=== PATIENT | female | born 1960 | race Caucasian/White ===

== ENCOUNTER 2017-12-30 17:46 | Emergency (ER) | payer OTHER ==
[~2017-12-30] VITALS: Ht 162.6 cm; Wt 80.0 kg
[~2017-12-30 17:46] MED LIST: LORTA5 PO; METH750T2 PO; MOBI15TA PO
[2017-12-30 17:53] VITALS: BP 109/56; PULSE 84; RESP 12; TEMP 97.7; O2SAT 95
[2017-12-30] MEDS ORDERED: KETOROLAC TROMETHAMINE 60 MG/2 ML (IM) VIAL IM ONE (18:45)
[2017-12-30] MEDS ORDERED: ORPHENADRINE INJ 60 MG/2 ML AMP IM ONE (18:45)
[2017-12-30] MEDS ORDERED: ROBA500T PO (19:36)
[2017-12-30] MEDS ORDERED: IBUP1TAB7 PO (19:36)
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
== END 2017-12-30 19:52 | disposition home or self-care (01) ==
LOC: NEPK 17:46
DX: S16.1XXA Strain of muscle, fascia and tendon at neck level, initial encounter (principal); G44.319 Acute post-traumatic headache, not intractable; V89.2XXA Person injured in unspecified motor-vehicle accident, traffic, initial encounter
CPT/HCPCS: 72050; 96372; 99283; J1885; J2360

== ENCOUNTER 2018-01-05 23:55 | Emergency (ER) | payer OTHER ==
[~2018-01-05 23:55] MED LIST changes: +IBUP1TAB7 PO; +ROBA500T PO
[2018-01-05 23:59] VITALS: BP 137/70; PULSE 69; RESP 16; TEMP 97.8; O2SAT 97
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
[2018-01-06] MEDS ORDERED: DEXAMETHASONE SOD PHOS 4 MG/ML VIAL IV PUSH ONE (01:15)
[2018-01-06] MEDS ORDERED: MORPHINE SULFATE 4 MG/ML INJ IV PUSH ONE (01:15)
[2018-01-06] MEDS ORDERED: KETOROLAC TROMETHAMINE 30 MG/ML (IVP) VIAL IV PUSH ONE (01:15)
[2018-01-06] MEDS ORDERED: ONDANSETRON ODT 4 MG TAB PO ONE (01:15)
--- NOTE | 2018-01-06 01:31 | RADRPT ---
EXAM DATE: 01/06/2018 1:24 AM EDT AGE/SEX: 57 years / Female INDICATIONS: Back pain. CLINICAL DATA: This is the patient's initial encounter. Patient reports that signs and symptoms have been present for 1 day and indicates a pain score of 8/10. MEDICAL/SURGICAL HISTORY: None. None. RADIATION DOSE: 35.25 CTDI (mGy) COMPARISON: No prior exams available for comparison. TECHNIQUE: Contiguous axial images were acquired with a multirow detector CT scanner without contras t. Multiplanar reconstructions in the sagittal and coronal plane were also performed. Using automate d exposure control and adjustment of the mA and/or kV according to patient size, radiation dose was k ept as low as reasonably achievable to obtain optimal diagnostic quality images. DICOM format image data is available electronically for review and comparison. FINDINGS: Vertebrae: Normal vertebral body height. Alignment: Normal. No subluxation. Metallic densities are seen adjacent to the uterus likely related to fallopian tube closure devices. T12-L1: The thecal sac has a normal diameter. No evidence of disc bulge or protrusion. The neural foramina are patent bilaterally. L1-L2: The thecal sac has a normal diameter. No evidence of disc bulge or protrusion. The neural f oramina are patent bilaterally. L2-L3: The thecal sac has a normal diameter. No evidence of disc bulge or protrusion. The neural f oramina are patent bilaterally. L3-L4: There is mild diffuse disc bulge causing a mild impression on the thecal sac. The neural fora shea are patent bilaterally. L4-L5: There is mild diffuse disc bulge causing a mild impression on the thecal sac. The neural fora shea are patent bilaterally. L5-S1: There is a mild right paracentral to lateral recess disc protrusion. This abuts the right S1 root at the lateral recess level. The thecal sac is otherwise normal. The neural foramina are patent bilaterally. CONCLUSION: 1. Mild right-sided disc protrusion at the L5-S1 level. 2. Mild disc bulges at the L3-L4 and L4-L5 levels. Electronically signed by: Johan Maya MD 01/06/2018 1:30 AM EDT
[2018-01-06] MEDS ORDERED: TYLETAB34 PO (02:30)
[2018-01-06 02:55] VITALS: BP 132/74
== END 2018-01-06 03:00 | disposition home or self-care (01) ==
LOC: NEPD 23:55
DX: M54.17 Radiculopathy, lumbosacral region (principal); F17.200 Nicotine dependence, unspecified, uncomplicated
CPT/HCPCS: 72131; 96374; 96375; 99284; J1100; J1885; J2270